=== PATIENT | female | born 1955 | race Caucasian/White ===

== ENCOUNTER 2017-09-18 12:56 | Inpatient (IN) | payer OTHER ==
[~2017-09-18] VITALS: Ht 170.2 cm; Wt 101.6 kg
[~2017-09-18 12:56] MED LIST: BUPR300T3 PO; CETI10TA22 PO; DEXT20CA7 PO; DOXY100T PO; ESCITALOPRAM OX20 MG PO; MONT10TA9 PO; MUPI15CR TP
[2017-09-18 13:21] LABS: BASO # 0.1 x10^3/uL (0.0-0.2); BASO % 1 % (0-3); EOS # 0.1 x10^3/uL (0.0-0.7); EOS % 1 % (0-3); HEMATOCRIT 45.5 % (36.0-47.0); LYMPH # 1.9 x10^3/uL (1.0-4.8); LYMPH % 17 % (24-48); MEAN CORPUSCULAR HEMOGLOBIN 31 pg (25-35); MEAN CORPUSCULAR HGB CONC 33 g/dL (31-37); MEAN CORPUSCULAR VOLUME 94 fL (79-100); MONO # 0.8 x10^3/uL (0.0-1.1); MONO % 7 % (0-9); NEUT # 8.7 x10^3uL (1.8-7.7); NEUT % 75 % (31-73); PLATELET COUNT 458 x10^3/uL (140-400); RED BLOOD COUNT 4.86 x10^6/uL (3.50-5.40); RED CELL DISTRIBUTION WIDTH 13.6 % (11.5-14.5); WHITE BLOOD COUNT 11.6 x10^3/uL (4.0-11.0)
[2017-09-18] MEDS ORDERED: ASPIRIN 325 MG TABLET ONE (13:23)
[2017-09-18 13:44] LABS: ALBUMIN 4.3 g/dL (3.4-5.0); CALCIUM 9.9 mg/dL (8.5-10.1); GFR 56.2; POTASSIUM 3.6 mmol/L (3.5-5.1); TOTAL BILIRUBIN 0.4 mg/dL (0.2-1.0); TOTAL PROTEIN 8.8 g/dL (6.4-8.2)
[2017-09-18] MEDS ORDERED: NITROGLYCERIN SUBLINGUAL 0.4 MG BOTTLE OF 25. SL ONE (13:45)
[2017-09-18] MEDS ORDERED: ASPIRIN 81 MG TAB.CHEW PO ONE (13:45)
--- NOTE | 2017-09-18 14:05 | RAD ---
EXAM: Left lower extremity venous Doppler. HISTORY: Left lower extremity pain/swelling. Leg tightness. COMPARISON: None. FINDINGS: Grayscale and Doppler analysis of the left lower extremity deep venous system was performed with graded compression and augmentation. The common femoral, greater saphenous, superficial femoral, popliteal and calf veins were assessed. There is no evidence of deep venous thrombosis. IMPRESSION: 1. No evidence of deep venous thrombosis.
--- NOTE | 2017-09-18 14:06 | RAD ---
EXAM: Chest 2 views. HISTORY: Chest pain, coronary disease. COMPARISON: 05/10/2016. FINDINGS: Frontal and lateral views of the chest are obtained. The inspiration is small. There are no confluent infiltrates. There is no pneumothorax or pleural effusion. The heart is not enlarged. IMPRESSION: 1. No confluent infiltrates.
--- NOTE | 2017-09-18 14:15 | PHYS DOC ---
Past History Past Medical History: CAD, Depression, High Cholesterol, TN, Other Past Surgical History: , Other Smoking: Non-smoker Alcohol Use: Rarely Drug Use: None Adult General Chief Complaint Chief Complaint: CHEST PAIN HPI HPI 61-year-old female patient with history of coronary artery disease and stent placement complaining of tightness in her substernal area since 9 AM as a mild pain with radiation like her another episode of chest pain with previous TN. Patient complaining of not feeling good with episodes of shortness of breath with activity. Patient denies nausea, dizziness, focal neuro deficit. Patient states she has had nonproductive cough for about one week above one week like allergic cough. She said her pain was 2/10 at 9 AM and decreased to 1/10. Patient states she feels some pain in left leg for the last 2 weeks that getting better with activity. Patient denies history of DVT and PE. Patient did not take aspirin today. Patient had a strong family history of coronary artery disease. Review of Systems Review of Systems Constitutional: Denies fever or chills [] Eyes: Denies change in visual acuity, redness, or eye pain [] HENT: Denies nasal congestion or sore throat [] Respiratory: Reports cough and shortness of breath Cardiovascular: No additional information not addressed in HPI [] GI: Denies abdominal pain, nausea, vomiting, bloody stools or diarrhea [] : Denies dysuria or hematuria [] Musculoskeletal: Denies back pain or joint pain [] Integument: Denies rash or skin lesions [] Neurologic: Denies headache, focal weakness or sensory changes [] Endocrine: Denies polyuria or polydipsia [] All other systems were reviewed and found to be within normal limits, except as documented in this note. Current Medications Current Medications Current Medications Medications (Trade) Dose Ordered Sig/Jatinder Start Time Stop Time Status Last Admin Dose Admin Aspirin (Susan Aspirin) 325 mg STK-MED ONCE 09/18/17 13:23 09/18/17 13:24 DC Aspirin (Children'S Aspirin) 324 mg 1X ONCE 09/18/17 13:45 09/18/17 13:46 DC 09/18/17 13:27 324 MG Nitroglycerin (Nitrostat) 0.4 mg 1X ONCE 09/18/17 13:45 09/18/17 13:46 DC Allergies Allergies Allergies Coded Allergies Type Severity Reaction Last Updated Verified Penicillins Allergy Intermediate Rash 12/19/14 Yes Sulfa (Sulfonamide Antibiotics) Allergy Intermediate Rash 12/19/14 Yes Physical Exam Physical Exam Constitutional: Well developed, well nourished, mild, non-toxic appearance. [] HENT: Normocephalic, atraumatic, bilateral external ears normal, oropharynx moist, no oral exudates, nose normal. [] Eyes: PERRLA, EOMI, conjunctiva normal, no discharge. [] Neck: Normal range of motion, no tenderness, supple, no stridor. [] Cardiovascular:Tachycardia, no murmur [] Lungs & Thorax: Bilateral breath sounds clear to auscultation [] Abdomen: Bowel sounds normal, soft, no tenderness, no masses, no pulsatile masses. [] Skin: Warm, dry, no erythema, no rash. [] Back: No tenderness, no CVA tenderness. [] Extremities: No tenderness, no cyanosis, no clubbing, ROM intact, no edema. [] Neurologic: Alert and oriented X 3, normal motor function, normal sensory function, no focal deficits noted. [] Psychologic: Affect normal, judgement normal, mood normal. [] Current Patient Data Vital Signs Vital Signs Date Time Temp Pulse Resp B/P (MAP) Pulse Ox O2 Delivery O2 Flow Rate FiO2 09/18/17 13:15 98.8 104 14 99 Room Air Lab Results Laboratory Tests Test 09/18/17 13:01 White Blood Count 11.6 x10^3/uL (4.0-11.0) H Red Blood Count 4.86 x10^6/uL (3.50-5.40) Hemoglobin 15.0 g/dL (12.0-15.5) Hematocrit 45.5 % (36.0-47.0) Mean Corpuscular Volume 94 fL (79-100) Mean Corpuscular Hemoglobin 31 pg (25-35) Mean Corpuscular Hemoglobin Concent 33 g/dL (31-37) Red Cell Distribution Width 13.6 % (11.5-14.5) Platelet Count 458 x10^3/uL (140-400) H Neutrophils (%) (Auto) 75 % (31-73) H Lymphocytes (%) (Auto) 17 % (24-48) L Monocytes (%) (Auto) 7 % (0-9) Eosinophils (%) (Auto) 1 % (0-3) Basophils (%) (Auto) 1 % (0-3) Neutrophils # (Auto) 8.7 x10^3uL (1.8-7.7) H Lymphocytes # (Auto) 1.9 x10^3/uL (1.0-4.8) Monocytes # (Auto) 0.8 x10^3/uL (0.0-1.1) Eosinophils # (Auto) 0.1 x10^3/uL (0.0-0.7) Basophils # (Auto) 0.1 x10^3/uL (0.0-0.2) Prothrombin Time 9.9 SEC (9.4-11.4) Prothrombin Time INR 1.0 (0.9-1.1) D-Dimer (Iris) 0.42 mg/L (0.00-0.50) Sodium Level 141 mmol/L (136-145) Potassium Level 3.6 mmol/L (3.5-5.1) Chloride Level 102 mmol/L (98-107) Carbon Dioxide Level 28 mmol/L (21-32) Anion Gap 11 (6-14) Blood Urea Nitrogen 12 mg/dL (7-20) Creatinine 1.0 mg/dL (0.6-1.0) Estimated GFR (Cockcroft-Gault) 56.2 BUN/Creatinine Ratio 12 (6-20) Glucose Level 112 mg/dL (70-99) H Calcium Level 9.9 mg/dL (8.5-10.1) Total Bilirubin 0.4 mg/dL (0.2-1.0) Aspartate Amino Transferase (AST) 23 U/L (15-37) Alanine Aminotransferase (ALT) 35 U/L (14-59) Alkaline Phosphatase 113 U/L (46-116) Creatine Kinase 69 U/L (26-192) Creatine Kinase MB (Mass) 0.6 ng/mL (0.0-3.6) Creatine Kinase MB Relative Index 0.9 % (0-4) Troponin I Quantitative < 0.017 ng/mL (0-0.055) BQ-Hdr-J-Type Natriuretic Peptide 37 pg/mL (0-124) Total Protein 8.8 g/dL (6.4-8.2) H Albumin 4.3 g/dL (3.4-5.0) Albumin/Globulin Ratio 1.0 (1.0-1.7) EKG EKG EKG interpreted by me. EKG at 1304 showed sinus tachycardia at rate of 1 today, left axis deviation, left anterior fascicular block, no acute ST and T-wave abnormality[] Radiology/Procedures Radiology/Procedures [] [address] [address] IMAGING REPORT Signed PATIENT: LORENA WHITAKER ACCOUNT: [id number] : 1955 LOCATION: ER AGE: 61 SEX: F EXAM STATUS: REG ER ORD. PHYSICIAN: GOOD HATCH MD REASON: chest pain PROCEDURE: CHEST PA & LATERAL EXAM: Chest 2 views. HISTORY: Chest pain, coronary disease. COMPARISON: 05/10/2016. FINDINGS: Frontal and lateral views of the chest are obtained. The inspiration is small. There are no confluent infiltrates. There is no pneumothorax or pleural effusion. The heart is not enlarged. IMPRESSION: 1. No confluent infiltrates. DICTATED AND SIGNED BY: ZAC INTERIANO MD DATE: 09/18/17 1403 CC: ADRYAN GUY MD; GOOD HATCH MD ~ [address] [address] IMAGING REPORT Signed PATIENT: LORENA WHITAKER ACCOUNT: [id number] : 1955 LOCATION: ER AGE: 61 SEX: F EXAM STATUS: REG ER ORD. PHYSICIAN: GOOD HATCH MD REASON: left leg pain for 2 weeks PROCEDURE: VENOUS LOWER EXTREMITY LEFT EXAM: Left lower extremity venous Doppler. HISTORY: Left lower extremity pain/swelling. Leg tightness. COMPARISON: None. FINDINGS: Grayscale and Doppler analysis of the left lower extremity deep venous system was performed with graded compression and augmentation. The common femoral, greater saphenous, superficial femoral, popliteal and calf veins were assessed. There is no evidence of deep venous thrombosis. IMPRESSION: 1. No evidence of deep venous thrombosis. DICTATED AND SIGNED BY: ZAC INTERIANO MD DATE: 09/18/17 1402 CC: ADRYAN GUY MD; GOOD HATCH MD ~ Course & Med Decision Making Course & Med Decision Making Pertinent Labs and Imaging studies reviewed. (See chart for details) Evaluation of patient in ER showed 61-year-old female patient with history of coronary artery disease and complaining of chest pain and palpitation. Patient had mild tachycardia at arrival to ER that resolved after rest. Patient had unremarkable EKG and labs and d-dimer. Because of history of coronary artery disease and diabetes mellitus and high cholesterol and family history of coronary artery disease plan to admit patient for observation and repeating troponin.. Dr Palmer informed at 1414 and agreed with plan of care. Dragon Disclaimer Dragon Disclaimer This electronic medical record was generated, in whole or in part, using a voice recognition dictation system. Departure Departure: Impression: Primary Impression: Acute chest pain Additional Impressions: Left leg pain Tachycardia Disposition: ADMITTED INPATIENT (At 1414) Admitting Physician: Mikayla Palmer Condition: IMPROVED Referrals: ADRYAN GUY MD (PCP) Problem Qualifiers GOOD HATCH MD Sep 18, 2017 14:15
[2017-09-18] MEDS ORDERED: UBID10CA5 PO (15:56)
[2017-09-18] MEDS ORDERED: LISI-338 PO (15:56)
[2017-09-18] MEDS ORDERED: METO-239 PO (15:56)
[2017-09-18] MEDS ORDERED: CETI10TA22 PO (15:56)
[2017-09-18] MEDS ORDERED: EZET10TA18 PO (15:56)
[2017-09-18] MEDS ORDERED: ASCO500T2 PO (15:56)
[2017-09-18] MEDS ORDERED: MULT1TAB52 PO (15:56)
[2017-09-18] MEDS ORDERED: MONT10TA9 PO (15:56)
[2017-09-18] MEDS ORDERED: ATORVASTATIN CA80 MG PO (15:56)
[2017-09-18] MEDS ORDERED: TICA60TA PO (15:56)
[2017-09-18] MEDS ORDERED: [UNRECOGNIZED DRUG - CODE] PO (15:56)
[2017-09-18] MEDS ORDERED: ESZO3TAB28 PO (15:56)
[2017-09-18 16:06] VITALS: BP 132/73
[2017-09-18 16:09] VITALS: BP 132/73
[2017-09-18] MEDS ORDERED: ZOLPIDEM 5 MG TABLET. PO PRN (17:15)
--- NOTE | 2017-09-18 19:01 | EKG ---
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
--- NOTE | 2017-09-18 19:03 | HP ---
ADMIT DATE: 09/18/2017 HISTORY OF PRESENT ILLNESS: The patient is a 61-year-old female patient with a history of coronary artery disease and stent deployment, came to the Emergency Room complaining of chest tightness in her substernal area that started about 9:00 a.m. She did not describe it as chest pain, the other chest tightness and shortness of breath on exertion, felt weak or tired, but denied any nausea or vomiting. Denied any diaphoresis or any radiation. It is similar to her previous episode of heart attack in 2009 and 2015 and therefore, she came to the Emergency Room for evaluation and treatment. Given her previous history of multiple heart attacks and stent deployment and strong family history, the patient was admitted to rule out myocardial infarction and to consult the Cardiology team for further evaluation and treatment. PAST MEDICAL HISTORY: Significant for coronary artery disease status post myocardial infarction in 2009 and 2015. She is status post PCI with stent deployment x3, all of them to the right coronary artery. She is known to have hypertension and hyperlipidemia. PAST SURGICAL HISTORY: Significant for percutaneous coronary intervention with stent deployment x3, 29 years ago and breast reduction surgery in 2002. ALLERGIES: She is allergic to PENICILLIN and SULFA drugs. MEDICATIONS: She is currently on following medications: She is on ascorbic acid 500 mg once a day, atorvastatin calcium 80 mg once a day, Wellbutrin-XR 300 mg once a day, cetirizine 10 mg once a day, Adderall-XR 20 mg once a day, escitalopram oxalate 20 mg daily, Lunesta 3 mg at bedtime, Zetia 10 mg at bedtime, lisinopril 5 mg once a day, metoprolol succinate 25 mg once a day, Singulair 10 mg at bedtime, multivitamin 1 tablet once a day, iron capsule 2 twice a day, Brilinta 90 mg p.o. b.i.d., CoQ10 one capsule once a day. FAMILY HISTORY: One older brother of myocardial infarction at age of 67 and the younger brother at age of 30 because of myocardial infarction. Her father at age of her early 70s after sustaining myocardial infarction. She has had aortic valve replacement and cerebral aneurysm rupture. Her mother at the age of 76 after developing myelodysplastic syndrome. She has left carotid endarterectomy, abdominal aortic aneurysm repair and coronary artery bypass graft surgery. SOCIAL HISTORY: She is . She has one son and a daughter. She never smoked. Drinks alcohol very rarely. She does not use any drugs. 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 REVIEW OF SYSTEMS: The patient denied any blurring of vision, cataract, glaucoma or macular degeneration. Denied any earache, tinnitus or sensorineural deafness. Denied any nosebleeds, stuffy nose or postnasal drip. Denied any sore throat, sore tongue, toothache, hoarseness of voice or difficulty swallowing. Denied any nausea, vomiting, diarrhea or constipation. Denied any hematemesis, melena or hematochezia. Denied any dysuria, frequency or hematuria. Denied any chest pain. Did complain of chest tightness. Denied any cough, phlegm or hemoptysis. Denied any orthopnea or paroxysmal nocturnal dyspnea. Denied any nausea, vomiting or diaphoresis. Denied any dizziness, lightheadedness, or vertigo. PHYSICAL EXAMINATION: GENERAL: On arrival to the Emergency Room, she looked well and was clearly in no apparent respiratory distress, slightly pale, but no jaundice, cyanosis, or thyromegaly. No jugular venous distention. No limb edema. VITAL SIGNS: Her heart rate was 104, blood pressure was 144/80, temperature was 98.8, respiratory rate was 14 and oxygen saturation was 99%. HEAD, EYES, EARS, NOSE AND THROAT: Showed normocephalic, atraumatic. NECK: Supple. HEART: Showed normal first and second heart sounds. No gallop, rub or murmur. CHEST: Clear to auscultation. No crepitation or rhonchi. ABDOMEN: Distended, soft, nontender. NEUROLOGIC: She was awake, alert, and responding appropriately. Cranial nerves intact. EXTREMITIES: She moves extremities without difficulty. She ambulates without assistance or assistive devices. LABORATORY AND DIAGNOSTIC DATA: Showed serum sodium 141, potassium 3.6, chloride 102, bicarbonate 28, anion gap of 11, BUN 12, creatinine 1, estimated GFR was 56 mL per minute. Her glucose was 112, calcium was 9.9. Total bilirubin, AST, ALT, alkaline phosphatase were normal. Total protein was 8.8 and albumin was 4.3. First set of cardiac enzymes showed troponin to be less than 0.017. White cell count was 11,600, hemoglobin 15, hematocrit 45, MCV 94 and platelet count of 458,000. Her prothrombin time was 9.9, INR of 1, aPTT was 0.42. Her chest x-ray showed the frontal and lateral views of the chest are obtained. There are no confluent infiltrate. There is no pneumothorax or pleural effusion. The heart is not enlarged. Her bilateral lower extremity venous ultrasound showed no evidence of deep vein thrombosis. PLAN: The plan is to do 2 more sets of cardiac enzyme. Check her fasting lipid profile and consult the Cardiology team and decide on further management accordingly. She apparently has first stent deployed at [facility] and we did consult the [facility] team to assist with her management. BYRON HOFF MD DR: CAROLYN/nichole JOB#: [id number] / [id number]
[2017-09-18 19:32] VITALS: BP 116/65
[2017-09-18] MEDS: TICAGRELOR 90 MG TABLET. PO SCH (20:18)
[2017-09-18] MEDS: OMEGA-3 FATTY ACIDS/FISH OIL 1,000 MG CAPSULE. PO SCH (20:18)
[2017-09-18] MEDS ORDERED: MONTELUKAST 10 MG TABLET. PO SCH (21:00)
[2017-09-18] MEDS ORDERED: ATORVASTATIN CALCIUM 20 MG TABLET PO SCH (21:00)
[2017-09-18 21:24] LABS: AMORPHOUS SEDIMENT,UR PRESENT /HPF; BACTERIA,URINE FEW /HPF (0-FEW); BILIRUBIN,URINE NEG (NEG); CLARITY,URINE CLEAR; COLOR,URINE YELLOW; GLUCOSE,URINE NEG (NEG); NITRITE,URINE NEG (NEG); RBC,URINE OCC /HPF (0-2); SQUAMOUS EPITHELIAL CELL,UR OCC /LPF; UROBILINOGEN,URINE 0.2 mg/dL (0.2 mg/dL); WBC,URINE OCC /HPF (0-4)
[2017-09-18 23:49] VITALS: BP 148/98
[2017-09-19 05:50] VITALS: BP 114/71
[2017-09-19] MEDS: OMEGA-3 FATTY ACIDS/FISH OIL 1,000 MG CAPSULE. PO SCH (08:38)
[2017-09-19] MEDS: TICAGRELOR 90 MG TABLET. PO SCH (08:40)
[2017-09-19] MEDS ORDERED: CETIRIZINE HCL 10 MG TABLET PO SCH (09:00)
[2017-09-19] MEDS ORDERED: MULTIVITAMIN with MINERAL TABLET. PO SCH (09:00)
[2017-09-19] MEDS ORDERED: LISINOPRIL 5 MG TABLET. PO SCH (09:00)
[2017-09-19] MEDS ORDERED: ASCORBIC ACID 500 MG TABLET PO SCH (09:00)
[2017-09-19] MEDS ORDERED: METOPROLOL SUCC 24HR ER 25 MG TAB.ER.24H. PO SCH (09:00)
[2017-09-19] MEDS ORDERED: EZETIMIBE 10 MG TABLET PO SCH (09:00)
[2017-09-19] MEDS ORDERED: UBIDECARENONE 50 MG CAPSULE. PO SCH (09:00)
--- NOTE | 2017-09-19 09:19 | PDOC2 ---
CONSULT Date of Admission DATE: 09/19/17 TIME: 09:13 Reason for Consult: chest pain Problem List Problems Medical Problems: (1) Acute chest pain Status: Acute (2) Left leg pain Status: Acute (3) Tachycardia Status: Acute History of Present Illness Ms Davis is a 61 year old female patient of Dr Robertson who presents with complaints of chest pain. She describes a midsternal pressure that started while at work, sitting at her desk. She denies any change with exertion, deep inspiraton or position change. She does report dyspnea on exertion that also started yesterday and is new for her. She complains of a dry cough that she associates with allergies. She denies any congestive symptoms or recent limitations in functional capacity. She does no regular exercise but is able to walk a flight of stairs without symptoms. She does report that her chest discomfort is consistent with what she experienced with her prior CA and abnormal stress test. She is currently pain free and resting quietly. Past Medical History CA 2009 with PCI /Stent to RCA, recurrent symptoms and abnormal MPI in 2011 with PCI/Stent to RCA, CA 2015 with PCI/stent to RCA. Cath revealed additional minimal stenosis in the LAD 20-30% and no other significant lesions. Last Echo 2015 revealed normal LV function with EF 60% and normal wall motion. no other significant abnormalities were noted. Hypertension uncontrolled hyperlipidemia arthritis Past Surgical History C section, breast reduction Family History significant for premature coronary disease Social History Non smoker, no significant ETOH, no illicit drugs. Current Medications Current Medications Aspirin (Children'S Aspirin) 324 mg 1X ONCE PO Last administered on 09/18/17at 13:27; Start 09/18/17 at 13:45; Stop 09/18/17 at 13:46; Status DC Nitroglycerin (Nitrostat) 0.4 mg 1X ONCE SL Last administered on 09/18/17at 14: 12; Start 09/18/17 at 13:45; Stop 09/18/17 at 13:46; Status DC Aspirin (Susan Aspirin) 325 mg STK-MED ONCE .ROUTE ; Start 09/18/17 at 13:23; Stop 09/18/17 at 13:24; Status DC Ascorbic Acid (Vitamin C) 500 mg DAILY PO Last administered on 09/19/17at 08:40 ; Start 09/19/17 at 09:00 Cetirizine HCl (ZyrTEC) 10 mg DAILY PO Last administered on 09/19/17 08:39; Start 09/19/17 at 09:00 EZETIMIBE (Zetia) 10 mg DAILY PO Last administered on 09/19/17 08:40; Start at 09:00 Lisinopril (Prinivil) 5 mg DAILY PO Last administered on 09/19/17 08:39; Start 09/19/17 at 09:00 Metoprolol Succinate (Toprol Xl) 25 mg DAILY PO Last administered on 09/19/17 08:39; Start 09/19/17 at 09:00 Montelukast Sodium (Singulair) 10 mg HS PO Last administered on 09/18/17 20:17 ; Start 09/18/17 at 21:00 Atorvastatin Calcium (Lipitor) 80 mg QHS PO Last administered on 09/18/17 20: 17; Start 09/18/17 at 21:00 Zolpidem Tartrate (Ambien) 5 mg PRN QHS PRN PO INSOMNIA MAY REPEAT X1; Start at 17:15 Multivitamins/ Calcium (Thera-M Plus) 1 tab DAILY PO Last administered on 08:39; Start 09/19/17 at 09:00 Fish Oil (Fish Oil) 2,000 mg BID PO Last administered on 09/19/17 08:38; Start 09/18/17 at 21:00 Ticagrelor (Brilinta) 90 mg BID PO Last administered on 09/19/17 08:40; Start 09/18/17 at 21:00 Coenzyme Q10 (Coenzyme Q10) 50 mg DAILY PO Last administered on 09/19/17at 08:40 ; Start 09/19/17 at 09:00 Active Scripts Active Reported Co Q-10 (Ubidecarenone) 10 Mg Capsule 10 Mg PO DAILY Multivitamins (Multivitamin) 1 Each Tablet 1 Tab PO DAILY Vitamin C (Ascorbic Acid) 500 Mg Tablet 500 Mg PO DAILY Brilinta (Ticagrelor) 60 Mg Tablet 90 Mg PO BID Zyrtec (Cetirizine Hcl) 10 Mg Tablet 1 Tab PO DAILY Atorvastatin Calcium 80 Mg Tablet 1 Tab PO DAILY Vayarin Capsule (Phospserin/[place]-3/Dha/Epa) 1 Each Capsule 2 Each PO BID Montelukast Sodium Tablet (Montelukast Sodium) 10 Mg Tablet 1 Tab PO HS Lisinopril 5 Mg Tablet 1 Tab PO DAILY Zetia (Ezetimibe) 10 Mg Tablet 1 Tab PO DAILY Metoprolol Succinate ( Xl ) (Metoprolol Succinate) 25 Mg Tab.er.24h 1 Tab PO DAILY Lunesta (Eszopiclone) 3 Mg Tablet 2 Mg PO QHS Allergies: Coded Allergies: Penicillins (Verified Allergy, Intermediate, Rash, 12/19/14) Sulfa (Sulfonamide Antibiotics) (Verified Allergy, Intermediate, Rash, ) Review of System as per HPI with the addition of left knee pain with ambulation, otherwise negative. General: Alert, Oriented X3, Cooperative, No acute distress HEENT: Atraumatic, EOMI, Mucous membr. moist/pink, Other (no carotid bruits) Lungs: Clear to auscultation, Normal air movement Heart: Regular rate, Normal S1, Normal S2, No murmurs, Other (no gallops, clicks or rubs) Abdomen: Normal bowel sounds, Soft, No tenderness Extremities: No cyanosis, No edema, Normal pulses Neuro: Normal speech, Strength at 5/5 X4 ext Psych/Mental Status: Mental status NL, Mood NL VITALS Vital Signs Date Time Temp Pulse Resp B/P (MAP) Pulse Ox O2 Delivery O2 Flow Rate FiO2 09/19/17 08:39 74 114/71 09/19/17 05:50 98.3 18 96 Room Air Labs Laboratory Tests Test 09/18/17 13:01 09/18/17 16:40 09/18/17 20:25 09/18/17 20:46 White Blood Count 11.6 x10^3/uL (4.0-11.0) Red Blood Count 4.86 x10^6/uL (3.50-5.40) Hemoglobin 15.0 g/dL (12.0-15.5) Hematocrit 45.5 % (36.0-47.0) Mean Corpuscular Volume 94 fL (79-100) Mean Corpuscular Hemoglobin 31 pg (25-35) Mean Corpuscular Hemoglobin Concent 33 g/dL (31-37) Red Cell Distribution Width 13.6 % (11.5-14.5) Platelet Count 458 x10^3/uL (140-400) Neutrophils (%) (Auto) 75 % (31-73) Lymphocytes (%) (Auto) 17 % (24-48) Monocytes (%) (Auto) 7 % (0-9) Eosinophils (%) (Auto) 1 % (0-3) Basophils (%) (Auto) 1 % (0-3) Neutrophils # (Auto) 8.7 x10^3uL (1.8-7.7) Lymphocytes # (Auto) 1.9 x10^3/uL (1.0-4.8) Monocytes # (Auto) 0.8 x10^3/uL (0.0-1.1) Eosinophils # (Auto) 0.1 x10^3/uL (0.0-0.7) Basophils # (Auto) 0.1 x10^3/uL (0.0-0.2) Prothrombin Time 9.9 SEC (9.4-11.4) Prothromb Time International Ratio 1.0 (0.9-1.1) D-Dimer (Iris) 0.42 mg/L (0.00-0.50) Sodium Level 141 mmol/L (136-145) Potassium Level 3.6 mmol/L (3.5-5.1) Chloride Level 102 mmol/L (98-107) Carbon Dioxide Level 28 mmol/L (21-32) Anion Gap 11 (6-14) Blood Urea Nitrogen 12 mg/dL (7-20) Creatinine 1.0 mg/dL (0.6-1.0) Estimated GFR (Cockcroft-Gault) 56.2 BUN/Creatinine Ratio 12 (6-20) Glucose Level 112 mg/dL (70-99) Calcium Level 9.9 mg/dL (8.5-10.1) Total Bilirubin 0.4 mg/dL (0.2-1.0) Aspartate Amino Transf (AST/SGOT) 23 U/L (15-37) Alanine Aminotransferase (ALT/SGPT) 35 U/L (14-59) Alkaline Phosphatase 113 U/L (46-116) Creatine Kinase 69 U/L (26-192) Creatine Kinase MB (Mass) 0.6 ng/mL (0.0-3.6) Creatine Kinase MB Relative Index 0.9 % (0-4) Troponin I Quantitative < 0.017 ng/mL (0-0.055) < 0.017 ng/mL (0-0.055) QG-Csi-T-Type Natriuretic Peptide 37 pg/mL (0-124) Total Protein 8.8 g/dL (6.4-8.2) Albumin 4.3 g/dL (3.4-5.0) Albumin/Globulin Ratio 1.0 (1.0-1.7) Glucose (Fingerstick) 81 mg/dL (70-99) Urine Collection Type Unknown Urine Color Yellow Urine Clarity Clear Urine pH 7.0 Urine Specific Erwin 1.015 Urine Protein Neg (NEG-TRACE) Urine Glucose (UA) Neg mg/dL (NEG) Urine Ketones (Stick) Neg mg/dL (NEG) Urine Blood Trace (NEG) Urine Nitrite Neg (NEG) Urine Bilirubin Neg (NEG) Urine Urobilinogen Dipstick 0.2 mg/dL (0.2 mg/dL) Urine Leukocyte Esterase Trace (NEG) Urine RBC Occ /HPF (0-2) Urine WBC Occ /HPF (0-4) Urine Squamous Epithelial Cells Occ /LPF Urine Amorphous Sediment Present /HPF Urine Bacteria Few /HPF (0-FEW) Test 09/19/17 01:15 Troponin I Quantitative < 0.017 ng/mL (0-0.055) Images EKG - sinus rhythm, left axis, LAFB no acute st/t abnormalities CXR - IMPRESSION: 1. No confluent infiltrates. Assessment/Plan 1. chest pain consistent with prior angina - CA ruled out. Await echo for LV function and wall motion. Ambulate. If no recurrent chest discomfort or significant abnormalities on echo, suggest outpatient MPI in the next week for progression of coronary disease. 2. abnormal EKG - no acute ischemic changes 3. Hypertension - controlled on current medications 4. Uncontrolled hyperlipidemia - on max Lipitor and Zetia. Await lipid panel and if she remains uncontrolled, suggest addition of Repatha or Praluent. Problems: JESUS HILL APRN Sep 19, 2017 09:19
[2017-09-19 11:43] VITALS: BP 124/85
--- NOTE | 2017-09-19 15:34 | CARD ---
MR#: [id number] Date of Study: 09/19/2017 Ordering Physician: BYRON HOFF, Referring Physician: BYRON HOFF, Tech: Tia Figueroa RDCS APPROVED REPORT EXAM: Two-dimensional and M-mode echocardiogram with Doppler and color Doppler. Other Information Quality : Good INDICATION Cardiac Disease: CAD LV Function:Systolic 2D DIMENSIONS RVDd2.8 (2.9-3.5cm)Left Atrium(2D)3.4 (1.6-4.0cm) IVSd1.1 (0.7-1.1cm)Aortic Root(2D)2.6 (2.0-3.7cm) LVDd4.7 (3.9-5.9cm)LVOT Diameter1.9 (1.8-2.4cm) PWd1.1 (0.7-1.1cm)LVDs2.8 (2.5-4.0cm) FS (%) 30.0 %SV70.9 ml LVEF(%)60.0 (>50%) Aortic Valve AoV Peak Jose.192.8cm/sAoV VTI34.1cm AO Peak GR.14.9mmHgLVOT Peak Jose.169.0cm/s LVOT VTI 30.31cmAO Mean GR.8mmHg CMARYN (VMAX)2.35sf4LQD (VTI)2.56cm2 Mitral Valve MV E Gheomoyn31.0cm/sMV DECEL ZOGV170ar MV A Nqhecvot043.8cm/sE/A Ratio0.7 Tricuspid Valve TR P. Zepypvho530eg/sRAP BNRXGFYD3npJm TR Peak Gr.64haSwIXKF58ziTa Pulmonary Vein S1 Cleeteqw45.7cm/sD2 Qwuducao30.8cm/s LEFT VENTRICLE The left ventricle is normal size. There is normal left ventricular wall thickness. The left ventricu lar systolic function is normal. The Ejection Fraction is 55-60%. There is normal LV segmental wall m otion. Transmitral Doppler flow pattern is Grade I-abnormal relaxation pattern. RIGHT VENTRICLE The right ventricle is normal size. The right ventricular systolic function is normal. ATRIA The left atrium size is normal. The right atrium size is normal. The interatrial septum is intact wit h no evidence for an atrial septal defect or patent foramen ovale as noted on 2-D or Doppler imaging. AORTIC VALVE The aortic valve and annulus is calcified but opens well. Doppler and Color Flow revealed no signific ant aortic regurgitation. There is no significant aortic valvular stenosis. MITRAL VALVE The mitral valve is calcified but opens well. Mitral annular calcification is mild. There is no evide nce of mitral valve prolapse. There is no mitral valve stenosis. Doppler and Color-flow revealed trac e mitral regurgitation. TRICUSPID VALVE The tricuspid valve is normal in structure and function. Doppler and Color Flow revealed trace to mil d tricuspid regurgitation. The PA pressure was estimated at 28 mmHg. There is no tricuspid valve sten osis. PULMONIC VALVE The pulmonary valve is normal in structure and function. Doppler and Color Flow revealed mild pulmoni c valvular regurgitation. There is no pulmonic valvular stenosis. GREAT VESSELS The aortic root is normal in size. The ascending aorta is normal in size. The IVC is normal in size a nd collapses >50% with inspiration. PERICARDIAL EFFUSION There is no evidence of significant pericardial effusion. Critical Notification Critical Value: No <Conclusion> The left ventricular systolic function is normal. The Ejection Fraction is 55-60%. There is normal LV segmental wall motion. Transmitral Doppler flow pattern is Grade I-abnormal relaxation pattern. Trace mitral regurgitation. Trace to mild tricuspid regurgitation. The PA pressure was estimated at 28 mmHg. There is no evidence of significant pericardial effusion. Signed by : aDo Mancini, Electronically Approved : 09/19/2017 15:33:25
[2017-09-19 15:47] VITALS: BP 122/72
--- NOTE | 2017-09-19 21:32 | DS ---
DATE OF DISCHARGE: 09/19/2017 HOSPITAL COURSE: The patient is resting slightly propped up in bed, in no apparent distress. On questioning her, denied any complaint, in particular denied any chest pain or shortness of breath. She has 3 sets of cardiac enzyme, all of them showed troponin to be less than 0.017. An echocardiogram done this morning showed that her left ventricular systolic function is normal, ejection fraction is 55-60%. There is normal left ventricular segmental wall motion. There is grade 1 abnormal relaxation pattern, mild mitral regurgitation and mild tricuspid regurgitation. Pulmonary artery pressure was estimated at 28 mmHg. There is no evidence of significant pericardial effusion. She was seen in consultation by the offc spec and myocardial infarction was ruled out. There are no significant abnormalities on echocardiogram and the patient can be discharged home to follow with her primary offc spec for an outpatient nuclear stress test. PHYSICAL EXAMINATION: GENERAL: When I saw her today, she was resting slightly propped up in bed, in no apparent respiratory distress, no pallor, jaundice, cyanosis, or thyromegaly. No jugular venous distension. No limb edema. VITAL SIGNS: Her heart rate was 76, blood pressure 122/72, temperature was 99, respiratory rate 20, and oxygen saturation was 96%. HEAD, EYES, EARS, NOSE AND THROAT: Showed she is normocephalic, atraumatic. NECK: Supple. HEART: Showed normal first and second heart sounds with no gallop, rub or murmur. CHEST: Clear to auscultation. No crepitation or rhonchi. ABDOMEN: Distended, soft, nontender. No guarding or rigidity. No organomegaly. Hernial orifice intact. Bowel sounds normal. NEUROLOGIC: She is awake, alert, responding appropriately. All cranial nerves intact. She moves extremities without difficulty. She ambulates without assistance or assistive devices. LABORATORY DATA: Showed that her serum triglycerides were 95, total cholesterol 93, LDL cholesterol was 133, VLDL was 19, and HDL cholesterol was 41, the ratio was 4. Her serum sodium was 141, potassium 3.6, chloride 102, bicarbonate 28, anion gap of 11, BUN 12, creatinine 1, estimated GFR was 60 mL. Her glucose 112, calcium was 9.9. Total bilirubin, AST, ALT, alkaline phosphatase were normal. Total protein was 8.8 and albumin was 4.3. White cell count was 11,600, hemoglobin 15, hematocrit 45, MCV 94 and platelet count of 158,000. DISCHARGE MEDICATIONS: She was discharged home to continue on following medications: Ascorbic acid 500 mg once a day, atorvastatin 80 mg at bedtime, cetirizine for Zyrtec 10 mg once a day, Lunesta 2 mg at bedtime, Zetia 10 mg daily, lisinopril 5 mg daily, metoprolol succinate 25 mg daily, Singulair 10 mg at bedtime, multivitamin 1 tablet once a day, iron capsule 2 twice a day, Brilinta 90 mg twice a day, and CoQ10 10 mg once a day. FINAL DISCHARGE DIAGNOSES: 1. Chest pain consistent with prior angina, myocardial infarction was ruled out. The patient has 3 sets of cardiac enzymes that were normal. Her echocardiogram was unremarkable. 2. Hypertension, well controlled. 3. Hyperlipidemia, on Nexium, Lipitor, and Zetia. The patient was advised to follow up with her primary offc spec for an outpatient nuclear stress test. BYRON HOFF MD DR: CAROLYN/nichole JOB#: [id number] / [id number]
== END 2017-09-19 18:00 | disposition home or self-care (01) | DRG 303 ==
LOC: ER 12:56 → 1 SOUTH 14:16 → OBSVTOIN 09-19 08:14
PROVIDERS: ADMIT Internal Medicine; ATTEND Internal Medicine
DX: I25.119 Atherosclerotic heart disease of native coronary artery with unspecified angina pectoris (principal); I08.1 Rheumatic disorders of both mitral and tricuspid valves; M19.90 Unspecified osteoarthritis, unspecified site; E78.5 Hyperlipidemia, unspecified; F32.9 Major depressive disorder, single episode, unspecified; I10 Essential (primary) hypertension; Z95.5 Presence of coronary angioplasty implant and graft; Z82.49 Family history of ischemic heart disease and other diseases of the circulatory system; I25.2 Old myocardial infarction; Z88.0 Allergy status to penicillin; Z88.2 Allergy status to sulfonamides; Z79.899 Other long term (current) drug therapy
CPT/HCPCS: 36415; 71046; 80053; 80061; 81001; 82553; 82947; 83880; 84484; 85025; 85379; 85610; 87086; 93005; 93306; 93971; G0378; G0379

== ENCOUNTER 2019-04-11 11:47 | Emergency (ER) | payer OTHER ==
[~2019-04-11] VITALS: Ht 170.2 cm; Wt 98.9 kg
[~2019-04-11 11:47] MED LIST changes: +ASCO500T2 PO; +ATORVASTATIN CA80 MG PO; +ESZO3TAB28 PO; +EZET10TA20 PO; +LISI-338 PO; +METO-239 PO; +MONT10TA80 PO; -MONT10TA9 PO; +MULT1TAB52 PO; +TICA60TA PO; +UBID10CA5 PO; +[UNRECOGNIZED DRUG - CODE] PO
--- NOTE | 2019-04-11 12:49 | EKG ---
[address] [address] Test Date: 2019-04-11 Test Time: 12:10:02 Pat Name: LORENA WHITAKER Department: Room: Gender: F Lodge Attendant: : 1955 Requested By: MALKA ANGUIANO Order Number: [id number] Reading MD: Measurements Intervals Perry Rate: 90 P: 30 OH: 138 QRS: -30 QRSD: 88 T: 0 QT: 354 QTc: 437 Interpretive Statements SINUS RHYTHM ABNORMAL LEFT AXIS DEVIATION R-S TRANSITION ZONE IN V LEADS DISPLACED TO THE LEFT LEFT ANTERIOR FASCICULAR BLOCK ABNORMAL ECG RI6.01 No previous ECG available for comparison
[2019-04-11 12:57] LABS: BASO # 0.1 x10^3/uL (0.0-0.2); BASO % 1 % (0-3); EOS % 0 % (0-3); HEMATOCRIT 45.4 % (36.0-47.0); LYMPH # 1.3 x10^3/uL (1.0-4.8); LYMPH % 14 % (24-48); MEAN CORPUSCULAR HEMOGLOBIN 32 pg (25-35); MEAN CORPUSCULAR HGB CONC 33 g/dL (31-37); MEAN CORPUSCULAR VOLUME 97 fL (79-100); MONO # 0.7 x10^3/uL (0.0-1.1); MONO % 7 % (0-9); NEUT # 7.6 x10^3uL (1.8-7.7); NEUT % 78 % (31-73); PLATELET COUNT 412 x10^3/uL (140-400); RED BLOOD COUNT 4.66 x10^6/uL (3.50-5.40); RED CELL DISTRIBUTION WIDTH 13.2 % (11.5-14.5); WHITE BLOOD COUNT 9.7 x10^3/uL (4.0-11.0)
[2019-04-11 13:10] LABS: ALBUMIN/GLOBULIN RATIO 0.9 (1.0-1.7); CALCIUM 10.1 mg/dL (8.5-10.1); CREATININE 1.2 mg/dL (0.6-1.0); GFR 45.2; POTASSIUM 3.8 mmol/L (3.5-5.1); TOTAL BILIRUBIN 0.6 mg/dL (0.2-1.0); TOTAL PROTEIN 8.3 g/dL (6.4-8.2)
--- NOTE | 2019-04-11 13:10 | RAD ---
Single view AP portable chest HISTORY: Chest pain. COMPARISON: 09/18/2017 image without report FINDINGS: Borderline widening of the cardiac silhouette. No central vascular congestion. No evidence of pneumothorax, pleural effusion or infiltrate. Bones appear intact. Right lung base and hemidiaphragm elevation is again seen. IMPRESSION: No consolidating infiltrate. Electronically signed by: Nino Medina MD (04/11/2019 1:07 PM) [facility]
[2019-04-11 13:50] VITALS: BP 145/92
--- NOTE | 2019-04-11 14:28 | PHYS DOC ---
Past History Past Medical History: CAD, Depression, High Cholesterol, [place], Other Past Surgical History: , Other Smoking: Non-smoker Alcohol Use: None Drug Use: None Adult General Chief Complaint Chief Complaint: SHORTNESS OF BREATH HPI HPI Patient is a 63-year-old female who is presenting with feeling the heart is racing dry cough some shortness of breath. Symptoms started on Sunday she was mowing the lawn herself she's never had any chest pain the last several days. She has had to sit down on her porch she felt like she was fatigued and was having a lot of coughing and then felt like her heart was racing she record her heart rate to be 140 after mowing the lawn this concerned her. No chest pain. Prior stent most recent 2017 due to abnormal stress test she said this happened during cardiology follow-up after recent admission at this hospital. Review of that chart did show patient complained of chest pain at that time. Again this time patient has no chest pain. She did say that with one of her heart attack she felt like she was just getting sick she tells me The symptoms have been pretty constant since Sunday they wax and wane in intensity but she's been feeling some element of this throughout. Review of Systems Review of Systems Constitutional: Denies fever or chills [] Eyes: Denies change in visual acuity, redness, or eye pain [] HENT: REPORTS SEASONAL ALLERGIC RHINITIS SYMPTOMS Respiratory Musculoskeletal: Denies back pain or joint pain [] Integument: Denies rash or skin lesions [] Neurologic: Denies headache, focal weakness or sensory changes [] Endocrine: Denies polyuria or polydipsia [] All other systems were reviewed and found to be within normal limits, except as documented in this note. Allergies Allergies Allergies Coded Allergies Type Severity Reaction Last Updated Verified Penicillins Allergy Intermediate Rash 12/19/14 Yes Sulfa (Sulfonamide Antibiotics) Allergy Intermediate Rash 12/19/14 Yes Physical Exam Physical Exam Constitutional: Well developed, well nourished, no acute distress, non-toxic appearance. [] HENT: Normocephalic, atraumatic, bilateral external ears normal, oropharynx moist, no oral exudates, nose normal. [] Eyes: PERRLA, EOMI, conjunctiva normal, no discharge. [] Neck: Normal range of motion, no tenderness, supple, no stridor. [] Cardiovascular:Heart rate regular rhythm, no murmur [] Lungs & Thorax: Bilateral breath sounds clear to auscultation [] Abdomen: Bowel sounds normal, soft, no tenderness, no masses, no pulsatile masses. [] Skin: Warm, dry, no erythema, no rash. [] Back: No tenderness, no CVA tenderness. [] Extremities: No tenderness, no cyanosis, no clubbing, ROM intact, no edema. [] Neurologic: Alert and oriented X 3, normal motor function, normal sensory function, no focal deficits noted. [] Psychologic: Affect normal, judgement normal, mood normal. [] Current Patient Data Vital Signs Vital Signs Date Time Temp Pulse Resp B/P (MAP) Pulse Ox O2 Delivery O2 Flow Rate FiO2 04/11/19 13:50 89 20 145/92 (109) 96 Room Air 04/11/19 12:12 99.0 Lab Results Laboratory Tests Test 04/11/19 12:37 White Blood Count 9.7 x10^3/uL (4.0-11.0) Red Blood Count 4.66 x10^6/uL (3.50-5.40) Hemoglobin 15.0 g/dL (12.0-15.5) Hematocrit 45.4 % (36.0-47.0) Mean Corpuscular Volume 97 fL (79-100) Mean Corpuscular Hemoglobin 32 pg (25-35) Mean Corpuscular Hemoglobin Concent 33 g/dL (31-37) Red Cell Distribution Width 13.2 % (11.5-14.5) Platelet Count 412 x10^3/uL (140-400) H Neutrophils (%) (Auto) 78 % (31-73) H Lymphocytes (%) (Auto) 14 % (24-48) L Monocytes (%) (Auto) 7 % (0-9) Eosinophils (%) (Auto) 0 % (0-3) Basophils (%) (Auto) 1 % (0-3) Neutrophils # (Auto) 7.6 x10^3uL (1.8-7.7) Lymphocytes # (Auto) 1.3 x10^3/uL (1.0-4.8) Monocytes # (Auto) 0.7 x10^3/uL (0.0-1.1) Eosinophils # (Auto) 0.0 x10^3/uL (0.0-0.7) Basophils # (Auto) 0.1 x10^3/uL (0.0-0.2) D-Dimer (Iris) 0.29 mg/L (0.00-0.50) Sodium Level 140 mmol/L (136-145) Potassium Level 3.8 mmol/L (3.5-5.1) Chloride Level 103 mmol/L (98-107) Carbon Dioxide Level 27 mmol/L (21-32) Anion Gap 10 (6-14) Blood Urea Nitrogen 12 mg/dL (7-20) Creatinine 1.2 mg/dL (0.6-1.0) H Estimated GFR (Cockcroft-Gault) 45.2 BUN/Creatinine Ratio 10 (6-20) Glucose Level 116 mg/dL (70-99) H Calcium Level 10.1 mg/dL (8.5-10.1) Total Bilirubin 0.6 mg/dL (0.2-1.0) Aspartate Amino Transferase (AST) 23 U/L (15-37) Alanine Aminotransferase (ALT) 31 U/L (14-59) Alkaline Phosphatase 90 U/L (46-116) Troponin I Quantitative < 0.017 ng/mL (0-0.055) Total Protein 8.3 g/dL (6.4-8.2) H Albumin 4.0 g/dL (3.4-5.0) Albumin/Globulin Ratio 0.9 (1.0-1.7) L EKG EKG []EKG showed normal sinus rhythm rate of 90 there are some T-wave inversions laterally which are unchanged compared to September 18, 2017 Radiology/Procedures Radiology/Procedures [] Impressions: OMPARISON: 09/18/2017 image without report FINDINGS: Borderline widening of the cardiac silhouette. No central vascular congestion. No evidence of pneumothorax, pleural effusion or infiltrate. Bones appear intact. Right lung base and hemidiaphragm elevation is again seen. IMPRESSION: No consolidating infiltrate. Electronically signed by: Nino Medina MD (04/11/2019 1:07 PM) [facility] DICTATED AND SIGNED BY: NINO MEDINA MD DATE: 04/11/19 5221 CC: ADRYAN GUY MD; MALKA ANGUIANO MD ~ Course & Med Decision Making Course & Med Decision Making Pertinent Labs and Imaging studies reviewed. (See chart for details) []This is a 63-year-old female with known coronary artery disease who is presenting with 5 days at least 4 days now of symptoms of feeling like her heart is racing dry cough seasonal allergies and some also shortness of breath with exertion she tells me. There is no chest pain. Patient's lungs are clear vitals are reassuring troponin negative after for solid days of symptoms no chest pain was recorded by history. She had talked about the risks and benefits of admission for overnight observation versus close outpatient follow-up with her credit intern. She prefers the latter think this is reasonable. We talked in detail we spent several minutes discussing the pathophysiology of coronary artery disease the significance of the troponin testing in the strict signs and symptoms of any return precautions needed. She is agreeable to this plan and she voiced understanding of the instructions d-dimer was negative this does not sound like a PE either. Dragon Disclaimer Dragon Disclaimer This electronic medical record was generated, in whole or in part, using a voice recognition dictation system. Departure Departure: Impression: Primary Impression: Dyspnea Disposition: HOME, SELF-CARE Condition: STABLE Patient Instructions: Shortness of Breath, [id number] MALKA ANGUIANO MD Apr 11, 2019 14:28
== END 2019-04-11 13:52 | disposition home or self-care (01) ==
LOC: ER 11:47
DX: R06.00 Dyspnea, unspecified (principal); R05 Cough; I25.10 Atherosclerotic heart disease of native coronary artery without angina pectoris; E78.00 Pure hypercholesterolemia, unspecified; I25.2 Old myocardial infarction; Z88.0 Allergy status to penicillin; Z88.2 Allergy status to sulfonamides
CPT/HCPCS: 36415; 71045; 80053; 84484; 85025; 85379; 93005; 99285